=== PATIENT | male | born 1950 | race African-American/Black ===

== ENCOUNTER 2022-03-26 15:32 | Inpatient (IN) | payer BC, MEDICARE ==
[~2022-03-26] VITALS: Ht 182.9 cm; Wt 69.0 kg
[2022-03-26] MEDS ORDERED: ASPI-1160 PO (17:13)
[2022-03-26] MEDS ORDERED: AMLO10TA80 PO (17:13)
[2022-03-26] MEDS ORDERED: ATOR40TA70 PO (17:13)
[2022-03-26] MEDS ORDERED: HYDR-4135 PO (17:13)
[2022-03-26] MEDS ORDERED: DOXA4TAB3 PO (17:13)
[2022-03-26] MEDS ORDERED: OMEP20CA14 PO (17:13)
[2022-03-26] MEDS ORDERED: NEPHROVITE (17:13)
[2022-03-26] MEDS ORDERED: METO-411 PO (17:13)
[2022-03-26] MEDS ORDERED: CINA30 PO (17:13)
[2022-03-26] MEDS ORDERED: REN800 PO (17:13)
[2022-03-26 20:00] LABS: BASOPHILS % 2.7 % (0.0-2.0); EOSINOPHILS % 2.1 % (0.0-5.0); HEMATOCRIT. 26.4 % (42.0-52.0); HEMOGLOBIN. 8.9 g/dL (14.0-18.0); LYMPHOCYTES % 20.4 % (20.0-50.0); MEAN CORPUSCULAR HEMOGLOBIN 32.1 pg (28.0-32.0); MEAN CORPUSCULAR VOLUME 95.6 fL (80.0-94.0); MEAN PLATELET VOLUME 8.4 fl (7.4-10.4); MONOCYTES % 7.9 % (2.0-8.0); NEUTROPHILS % 66.9 % (40.0-76.0); PLATELET 162 x1000/uL (130-400); RED BLOOD CELL COUNT 2.76 mill/uL (4.7-6.1); RED CELL DISTRIBUTION WIDTH 17.1 % (11.6-14.6)
[2022-03-26 20:09] LABS: CHLORIDE 95 mEq/L (98-107)
[2022-03-26 20:18] LABS: INR 1.3; PARTIAL THROMBOPLASTIN TIME 28.9 sec (23.4-31.0); PROTHROMBIN TIME 13.7 sec (9.6-11.0)
[2022-03-27 08:00] VITALS: BP_SYST 117; BP_SYST 133; BP_DIAS 75; BP_DIAS 78
[2022-03-27] MEDS: SEVELAMER CARBONATE 800 MG TABLET PO SCH ×4 (08:20→18:02)
[2022-03-27] MEDS ORDERED: ACETAMINOPHEN 325MG TABLET PO NR (08:45)
[2022-03-27] MEDS ORDERED: ACETAMINOPHEN 325MG TABLET PO PRN ×2 (08:45→09:30)
[2022-03-27] MEDS: AMLODIPINE 10MG TABLET PO SCH ×2 (09:00→09:57)
[2022-03-27] MEDS ORDERED: GUAIFENESIN 200MG/10ML SUGAR FREE UDC PO PRN (09:30)
[2022-03-27] MEDS ORDERED: ONDANSETRON HCL 4MG/2ML INJ IV PRN (09:30)
[2022-03-27] MEDS ORDERED: DOCUSATE SODIUM 100MG CAPSULE PO PRN (09:30)
[2022-03-27] MEDS ORDERED: MAGNESIUM/ALUMINUM HYDROXIDE/SIMETHICONE 30ML UDC PO PRN (09:30)
[2022-03-27] MEDS: LOSARTAN POTASSIUM 50 MG TABLET PO SCH ×2 (09:57→17:00)
[2022-03-27] MEDS: HYDRALAZINE HCL 50MG TABLET PO SCH ×4 (09:58→20:49)
[2022-03-27 12:00] VITALS: BP 123/68
[2022-03-27] MEDS ORDERED: LIDOCAINE HCL/PF 1% 10 MG/ML 5ML VIAL ONE (12:21)
[2022-03-27] MEDS ORDERED: NALOXONE HCL 0.4MG/ML VIAL IV PRN (16:45)
[2022-03-27] MEDS: CINACALCET HCL 30MG TABLET PO SCH (17:00)
[2022-03-27] MEDS: TRAMADOL 50MG TABLET PO PRN (21:03)
[2022-03-28] VITALS (10 sets, daily range): BP systolic 117–185; BP diastolic 42–91
[2022-03-28 06:54] LABS: BASOPHILS % 1.3 % (0.0-2.0); EOSINOPHILS % 1.1 % (0.0-5.0); HEMATOCRIT. 27.5 % (42.0-52.0); HEMOGLOBIN. 9.2 g/dL (14.0-18.0); LYMPHOCYTES % 17.2 % (20.0-50.0); MEAN CORPUSCULAR HEMOGLOBIN 32.1 pg (28.0-32.0); MEAN CORPUSCULAR VOLUME 95.7 fL (80.0-94.0); MEAN PLATELET VOLUME 8.4 fl (7.4-10.4); MONOCYTES % 7.7 % (2.0-8.0); NEUTROPHILS % 72.7 % (40.0-76.0); PLATELET 208 x1000/uL (130-400); RED BLOOD CELL COUNT 2.87 mill/uL (4.7-6.1); RED CELL DISTRIBUTION WIDTH 17.3 % (11.6-14.6)
[2022-03-28] MEDS ORDERED: DEXAMETHASONE 4MG/ML 1ML VIAL ONE (07:25)
[2022-03-28] MEDS ORDERED: FENTANYL CITRATE/PF 50MCG/ML 2ML VIAL ONE (07:25)
[2022-03-28] MEDS ORDERED: ONDANSETRON HCL 4MG/2ML INJ ONE (07:25)
[2022-03-28] MEDS ORDERED: ETOMIDATE 2MG/ML 10ML VIAL IV ONE (07:25)
[2022-03-28] MEDS ORDERED: SUCCINYLCHOLINE CHLORIDE 200MG/10ML IV ONE (07:25)
[2022-03-28] MEDS ORDERED: CEFAZOLIN SODIUM 1000MG/VIAL ONE (07:25)
[2022-03-28] MEDS ORDERED: MIDAZOLAM HCL 2 MG/2 ML VIAL ONE (07:26)
[2022-03-28] MEDS ORDERED: BUPIVACAINE HCL/PF 0.5% (5MG/ML) 10ML ONE (07:28)
[2022-03-28] MEDS ORDERED: HEPARIN SODIUM 1,000 UNIT/1ML VIAL IV ONE (07:28)
[2022-03-28] MEDS ORDERED: LIDOCAINE HCL 1% 10 MG/ML 10ML VIAL ONE (07:28)
[2022-03-28] MEDS ORDERED: THROMBIN (BOVINE) 5000 UNITS/VIAL TOP ONE (07:28)
[2022-03-28] MEDS ORDERED: POLYMYXIN B SULFATE 500000 UNITS/VIAL ONE (07:28)
[2022-03-28] MEDS ORDERED: BACITRACIN 15GM TUBE TOP ONE (07:28)
[2022-03-28] MEDS ORDERED: MORPHINE SULFATE 4 MG/ML CPJ (NOT FOR IM USE) IV PRN (07:45)
[2022-03-28] MEDS ORDERED: ROCURONIUM BROMIDE 10MG/ML VIAL 5ML IV ONE (07:47)
[2022-03-28] MEDS ORDERED: PROPOFOL 200MG/20ML VIAL IV ONE (07:51)
[2022-03-28] MEDS ORDERED: MEPERIDINE HCL/PF 25MG/ML CPJ IV PRN (08:15)
[2022-03-28] MEDS ORDERED: HYDROMORPHONE HCL/PF 2MG/ML CPJ IV PRN (08:15)
[2022-03-28] MEDS ORDERED: ONDANSETRON HCL 4MG/2ML INJ IV PRN (08:15)
[2022-03-28] MEDS ORDERED: LABETALOL 5MG/ML SYR 20 MG/4 ML SYRINGE IV PRN (08:15)
[2022-03-28] MEDS: SEVELAMER CARBONATE 800 MG TABLET PO SCH ×3 (08:20→17:37)
[2022-03-28 08:31] LABS: CHLORIDE 98 mEq/L (98-107)
[2022-03-28] MEDS: HYDRALAZINE HCL 50MG TABLET PO SCH ×4 (08:32→20:34)
[2022-03-28] MEDS: LOSARTAN POTASSIUM 50 MG TABLET PO SCH ×2 (08:32→17:11)
[2022-03-28] MEDS: AMLODIPINE 10MG TABLET PO SCH (08:33)
[2022-03-28 08:38] LABS: HDL CHOLESTEROL 35 mg/dL (40-59); LDL CHOLESTEROL 40 mg/dL (5-100)
[2022-03-28] MEDS ORDERED: AMLODIPINE 10MG TABLET PO SCH (09:00)
[2022-03-28] MEDS ORDERED: NEOSTIGMINE METHYLSULFATE 1MG/ML 10 ML VIAL ONE (09:33)
[2022-03-28] MEDS ORDERED: GLYCOPYRROLATE 0.2 MG/ML 2ML VIAL ONE ×2 (09:33)
[2022-03-28] MEDS ORDERED: IPRATROPIUM/ALBUTEROL 0.5-3(2.5)MG/3ML NEB HHN ONE (10:15)
[2022-03-28] MEDS ORDERED: LIDOCAINE HCL/EPINEPHRINE 1%-EPI 1:100,000 20 ML VIAL ONE (12:57)
[2022-03-28] MEDS ORDERED: LIDOCAINE HCL/PF 1% 10 MG/ML 5ML VIAL ONE (12:57)
[2022-03-28] MEDS ORDERED: IOHEXOL-300 50 ML BOTTLE IV ONE (12:58)
[2022-03-28] MEDS: CINACALCET HCL 30MG TABLET PO SCH (17:12)
[2022-03-28] MEDS: TRAMADOL 50MG TABLET PO PRN (20:32)
[2022-03-29] VITALS (7 sets, daily range): BP systolic 172–203; BP diastolic 62–75
[2022-03-29] MEDS: HYDRALAZINE 20MG/ML VIAL IV PRN ×2 (05:28→13:55)
[2022-03-29] MEDS: SEVELAMER CARBONATE 800 MG TABLET PO SCH ×4 (08:20→18:20)
[2022-03-29] MEDS: LOSARTAN POTASSIUM 50 MG TABLET PO SCH ×2 (08:24→18:59)
[2022-03-29] MEDS: HYDRALAZINE HCL 50MG TABLET PO SCH ×4 (08:24→21:00)
[2022-03-29] MEDS: AMLODIPINE 10MG TABLET PO SCH (08:25)
[2022-03-29] MEDS: CINACALCET HCL 30MG TABLET PO SCH (18:59)
[2022-03-30] VITALS (8 sets, daily range): BP systolic 151–198; BP diastolic 59–70
[2022-03-30] MEDS: HYDRALAZINE 20MG/ML VIAL IV PRN ×2 (01:41→16:52)
[2022-03-30] MEDS: TRAMADOL 50MG TABLET PO PRN ×2 (01:41→22:42)
[2022-03-30] MEDS: SEVELAMER CARBONATE 800 MG TABLET PO SCH ×3 (09:06→17:21)
[2022-03-30] MEDS: AMLODIPINE 10MG TABLET PO SCH (09:06)
[2022-03-30] MEDS: LOSARTAN POTASSIUM 50 MG TABLET PO SCH ×2 (09:06→17:19)
[2022-03-30] MEDS: HYDRALAZINE HCL 50MG TABLET PO SCH ×4 (09:26→20:15)
[2022-03-30] MEDS: CINACALCET HCL 30MG TABLET PO SCH (17:19)
[2022-03-31] VITALS (8 sets, daily range): BP systolic 144–193; BP diastolic 60–78
[2022-03-31] MEDS: HYDRALAZINE 20MG/ML VIAL IV PRN (00:10)
[2022-03-31] MEDS: SEVELAMER CARBONATE 800 MG TABLET PO SCH ×2 (08:20→13:20)
[2022-03-31] MEDS: HYDRALAZINE HCL 50MG TABLET PO SCH ×2 (13:00→13:01)
[2022-03-31] MEDS: LOSARTAN POTASSIUM 50 MG TABLET PO SCH (13:01)
[2022-03-31] MEDS: AMLODIPINE 10MG TABLET PO SCH (13:05)
[2022-03-31 15:44] LABS: HEMATOCRIT. 22.8 % (42.0-52.0); HEMOGLOBIN. 7.9 g/dL (14.0-18.0); MEAN CORPUSCULAR HEMOGLOBIN 32.6 pg (28.0-32.0); MEAN CORPUSCULAR VOLUME 94.7 fL (80.0-94.0); MEAN PLATELET VOLUME 8.5 fl (7.4-10.4); PLATELET 193 x1000/uL (130-400); RED BLOOD CELL COUNT 2.41 mill/uL (4.7-6.1); RED CELL DISTRIBUTION WIDTH 16.5 % (11.6-14.6)
[2022-04-01 00:48] LABS: PLATELET ESTIMATE NORMAL
== END 2022-03-31 17:27 | disposition home or self-care (01) | DRG 252 ==
LOC: ER 15:32 → MICUSO 20:40 → EDBEDREQ 20:42 → EDBEDREQSVC 20:42 → EDBEDREQTM 20:42 → 6WST 03-27 06:31
PROVIDERS: ADMIT Hospitalist; ATTEND Hospitalist
PROC: 03180JD Bypass Left Brachial Artery to Upper Arm Vein with Synthetic Substitute, Open Approach (ICD-10-PCS; principal; 2022-03-28)
PROC: 03WY0JZ Revision of Synthetic Substitute in Upper Artery, Open Approach (ICD-10-PCS; 2022-03-28)
PROC: 05WY0JZ Revision of Synthetic Substitute in Upper Vein, Open Approach (ICD-10-PCS; 2022-03-28)
PROC: 5A1D70Z Performance of Urinary Filtration, Intermittent, Less than 6 Hours Per Day (ICD-10-PCS; 2022-03-31)
PROC: 0JH63XZ Insertion of Tunneled Vascular Access Device into Chest Subcutaneous Tissue and Fascia, Percutaneous Approach (ICD-10-PCS; 2022-03-31)
PROC: 02HV33Z Insertion of Infusion Device into Superior Vena Cava, Percutaneous Approach (ICD-10-PCS; 2022-03-31)
PROC: B518ZZA Fluoroscopy of Superior Vena Cava, Guidance (ICD-10-PCS; 2022-03-31)
PROC: B548ZZA Ultrasonography of Superior Vena Cava, Guidance (ICD-10-PCS; 2022-03-31)
DX: T82.898A Other specified complication of vascular prosthetic devices, implants and grafts, initial encounter (principal); I50.33 Acute on chronic diastolic (congestive) heart failure; N18.6 End stage renal disease; I13.2 Hypertensive heart and chronic kidney disease with heart failure and with stage 5 chronic kidney disease, or end stage renal disease; N25.81 Secondary hyperparathyroidism of renal origin; D62 Acute posthemorrhagic anemia; Z20.822 Contact with and (suspected) exposure to COVID-19; M25.511 Pain in right shoulder; E73.9 Lactose intolerance, unspecified; D63.1 Anemia in chronic kidney disease; Y83.2 Surgical operation with anastomosis, bypass or graft as the cause of abnormal reaction of the patient, or of later complication, without mention of misadventure at the time of the procedure; Z99.2 Dependence on renal dialysis; Z88.5 Allergy status to narcotic agent; Z88.8 Allergy status to other drugs, medicaments and biological substances; Z79.82 Long term (current) use of aspirin; Z79.899 Other long term (current) drug therapy; Y92.89 Other specified places as the place of occurrence of the external cause
CPT/HCPCS: 36415; 36558; 73030; 76937; 77001; 80048; 80053; 80061; 85025; 86850; 86900; 87426; 90935; 93005; 93922; 93971; 94640; 99285; C1750; C1768; C1769; J0330; J0360; J0690; J1100; J1644; J2250; J2270; J2405; J2704; J2710; J3010; J3490; J7050; Q9967